=== PATIENT | female | born 2000 | race Caucasian/White ===

== ENCOUNTER 2020-09-24 14:27 | Emergency (ER) | payer OTHER ==
[~2020-09-24] VITALS: Ht 154.9 cm; Wt 56.4 kg
[2020-09-24] MEDS ORDERED: LIDOCAINE 5% TRANSDERMAL PATCH TD ONE (15:00)
[2020-09-24] MEDS ORDERED: CYCLOBENZAPRINE HCL 10 MG TABLET PO ONE (15:00)
[2020-09-24] MEDS ORDERED: KETOROLAC TROMETHAMINE 30 MG/ML VIAL IM ONE (15:00)
[2020-09-24 16:45] VITALS: BP 127/95
== END 2020-09-24 17:10 | disposition home or self-care (01) ==
LOC: EMS 14:35
DX: M54.5 Low back pain (principal)
CPT/HCPCS: 96372; 99283; J1885